=== PATIENT | male | born 1940 | race Caucasian/White ===

== ENCOUNTER 2020-02-22 08:21 | Outpatient (REF) | payer MEDICARE, MEDICAID, SELFPAY ==
[2020-02-22 09:32] LABS: Alanine Aminotransferase 49 U/L (0-40); Albumin Level 4.2 g/dL (3.5-5.0); Alkaline Phosphatase 150 U/L (39-117); Aspartate Amino Transferase 29 U/L (5-37); Bilirubin Direct 0.4 mg/dL (0.0-0.5); Bilirubin Total 0.7 mg/dL (0.0-1.0); Blood Urea Nitrogen 20 mg/dL (9-16); Estimated Glomerular Filt Rate 41; Total Protein 7.2 g/dL (6.5-8.0)
== END 2020-02-22 08:22 | disposition home or self-care (01) ==
LOC: HO.LAB 08:21
PROVIDERS: PCP Internal Medicine; Visit Provider Internal Medicine
DX: R79.9 Abnormal finding of blood chemistry, unspecified (principal); R79.89 Other specified abnormal findings of blood chemistry
CPT/HCPCS: 36415; 80076; 82565; 84520

== ENCOUNTER 2020-07-18 10:22 | Outpatient (REF) | payer MEDICARE, MEDICAID, SELFPAY ==
[2020-07-18 11:02] LABS: Estimated Average Glucose 154 mg/dL
[2020-07-18 11:28] LABS: Alanine Aminotransferase 32 U/L (0-40); Albumin Level 4.1 g/dL (3.5-5.0); Alkaline Phosphatase 186 U/L (39-117); Aspartate Amino Transferase 19 U/L (5-37); Bilirubin Direct 0.5 mg/dL (0.0-0.5); Bilirubin Total 1.1 mg/dL (0.0-1.0); Cholesterol 252 mg/dL; Glucose Fasting 104 mg/dL (60-99); HDL Cholesterol 30 mg/dL; LDL Cholesterol Calculated 156 mg/dl; Total Protein 7.3 g/dL (6.5-8.0); Triglycerides 332 mg/dL
[2020-07-18 12:41] LABS: Reflex LDLD? No
== END 2020-07-18 10:23 | disposition home or self-care (01) ==
LOC: HO.LNP 10:22
PROVIDERS: PCP Internal Medicine; Visit Provider Internal Medicine
DX: E11.9 Type 2 diabetes mellitus without complications (principal); E78.00 Pure hypercholesterolemia, unspecified
CPT/HCPCS: 80061; 80076; 82947; 83036

== ENCOUNTER 2020-10-10 10:21 | Outpatient (REF) | payer MEDICARE, MEDICAID, SELFPAY ==
[2020-10-10 11:59] LABS: Alkaline Phosphatase 131 U/L (39-117)
== END 2020-10-10 10:22 | disposition home or self-care (01) ==
LOC: HO.LNP 10:21
PROVIDERS: Visit Provider Internal Medicine
DX: R74.8 Abnormal levels of other serum enzymes (principal)
CPT/HCPCS: 84075